=== PATIENT | male | born 1970 | race Caucasian/White ===

== ENCOUNTER → 2016-03-04 | Outpatient (REF) | payer BC ==
[~2016-03-04] MED LIST: ATOR40TA PO; FENO1CAP2 PO; VITA200028 PO
[2016-03-04 19:57] LABS: MEAN CORPUSCULAR HEMOGLOBIN 34.8 pg (27.0-33.0); MEAN CORPUSCULAR HGB CONC 35.7 g/dl (32.0-36.5); MEAN CORPUSCULAR VOLUME 97.4 fl (80.0-96.0); RED CELL DISTRIBUTION WIDTH 12.3 % (11.5-14.5); WHITE BLOOD COUNT 7.2 K/mm3 (4.0-10.0)
[2016-03-04 20:12] LABS: ALBUMIN 4.3 GM/DL (3.2-5.2); ALBUMIN/GLOBULIN RATIO 1.43 (1.00-1.93); ALKALINE PHOSPHATASE 50 U/L (45-117); ALT/SGPT 32 U/L (12-78); ANION GAP 10 MEQ/L (8-16); AST/SGOT 22 U/L (15-37); BILIRUBIN,TOTAL 0.9 MG/DL (0.2-1.0); BLOOD UREA NITROGEN 13 MG/DL (7-18); CALCIUM LEVEL 8.9 MG/DL (8.5-10.1); CARBON DIOXIDE LEVEL 26 MEQ/L (21-32); CHLORIDE LEVEL 106 MEQ/L (98-107); CHOLESTEROL LEVEL 210 MG/DL (<200); CREATININE FOR GFR 1.04 MG/DL (0.70-1.30); GLOMERULAR FILTRATION RATE > 60.0 (>60); GLUCOSE, FASTING 118 MG/DL (70-105); SODIUM LEVEL 142 MEQ/L (136-145); TOTAL PROTEIN 7.3 GM/DL (6.4-8.2); TRIGLYCERIDES LEVEL 386 MG/DL (<150)
== END ==
LOC: M SFHCCLAY 10:40
PROVIDERS: ATTEND Nurse Practitioner
DX: D86.9 Sarcoidosis, unspecified (principal); E78.5 Hyperlipidemia, unspecified

== ENCOUNTER 2016-06-12 21:06 | Emergency (ER) | payer BC ==
[~2016-06-12] VITALS: Ht 177.8 cm; Wt 88.5 kg
[2016-06-12] MEDS ORDERED: BREO1INH3 (21:28)
[2016-06-12] MEDS ORDERED: ALBU17IN (21:28)
[2016-06-12] MEDS ORDERED: HYDR1CAP25 (21:28)
[2016-06-12 22:40] LABS: MEAN CORPUSCULAR HEMOGLOBIN 34.7 pg (27.0-33.0); MEAN CORPUSCULAR HGB CONC 34.9 g/dl (32.0-36.5); MEAN CORPUSCULAR VOLUME 99.4 fl (80.0-96.0); WHITE BLOOD COUNT 7.5 K/mm3 (4.0-10.0)
[2016-06-12 23:01] LABS: METHADONE URINE NEGATIVE (NEGATIVE)
[2016-06-12 23:10] LABS: ALBUMIN 3.8 GM/DL (3.2-5.2); ALBUMIN/GLOBULIN RATIO 1.41 (1.00-1.93); ALKALINE PHOSPHATASE 44 U/L (45-117); ALT/SGPT 29 U/L (12-78); ANION GAP 10 MEQ/L (8-16); AST/SGOT 17 U/L (15-37); BILIRUBIN,DIRECT 0.1 MG/DL (0.0-0.2); BILIRUBIN,TOTAL 0.5 MG/DL (0.2-1.0); BLOOD UREA NITROGEN 11 MG/DL (7-18); CALCIUM LEVEL 8.1 MG/DL (8.5-10.1); CARBON DIOXIDE LEVEL 23 MEQ/L (21-32); CHLORIDE LEVEL 109 MEQ/L (98-107); CREATININE FOR GFR 1.03 MG/DL (0.70-1.30); GLOMERULAR FILTRATION RATE > 60.0 (>60); GLUCOSE, FASTING 119 MG/DL (70-105); POTASSIUM SERUM 3.6 MEQ/L (3.5-5.1); SODIUM LEVEL 142 MEQ/L (136-145); TOTAL PROTEIN 6.5 GM/DL (6.4-8.2)
[2016-06-12 23:59] VITALS: BP 137/87
== END 2016-06-13 | disposition home or self-care (01) ==
LOC: M ED 22:18
DX: F10.120 Alcohol abuse with intoxication, uncomplicated (principal); I10 Essential (primary) hypertension; J45.909 Unspecified asthma, uncomplicated; E78.5 Hyperlipidemia, unspecified; Z79.899 Other long term (current) drug therapy; Z91.040 Latex allergy status
CPT/HCPCS: 36415; 80048; 80076; 80306; 84443; 85027; 99284; G0480